=== PATIENT | female | born 1970 | race Caucasian/White ===

== ENCOUNTER 2017-03-13 16:28 | Emergency (ER) | payer OTHER ==
[~2017-03-13] VITALS: Ht 165.1 cm; Wt 104.3 kg
[~2017-03-13 16:28] MED LIST: CLARINEX5 M1 PO; FLEXERIL10 MG PO; GLUCOTROL XL10 MG PO; IBUPROFEN600 M1 PO; JANUVIA100 M1 PO; L-METHYL-B6-B11 EACH PO; LEVEMIR FL100 UNIT/1 SC; LISINOPRIL2.5 M1 PO; LYRICA50 M1 PO; METFORMIN HCL500 M3 PO; NAPROSYN500 M1 PO; NORCO 325 MG-51 TAB PO; PATADAY2.5 ML OP; PERCOCET 325 MG1 TA2 PO; POLYTRIM O200 GTT/BO OPH; PRED FORTE 1 ML1 ML OPH; TRICOR48 M1 PO
--- NOTE | 2017-03-13 17:32 | ED NECK/BACK PAIN COMPLAINT ---
History of Present Illness General Chief Complaint: Low Back Pain/Injury Stated Complaint: CHRONIC LBP,SCIATICA Source: patient Exam Limitations: no limitations Vital Signs & Intake/Output Vital Signs & Intake/Output Vital Signs Date Time Temp Pulse Resp B/P B/P Pulse O2 O2 Flow FiO2 Mean Ox Delivery Rate 03/13 1644 98.0 99 16 146/91 99 Room Air Allergies Coded Allergies: amoxicillin (From AUGMENTIN) (TROUBLE BREATHING 02/06/16) clavulanic acid (From AUGMENTIN) (TROUBLE BREATHING 02/06/16) Reconcile Medications Buspirone HCl 10 MG TABLET 1 TAB PO BID ANXIETY (Reported) Duloxetine HCl 60 MG CAPSULE.DR 1 CAP PO DAILY DEPRESSION (Reported) Exenatide Microspheres (Bydureon Pen) (Unknown Strength) PEN.INJCTR (Unknown Dose) SC QMON DM (Reported) Fenofibrate Nanocrystallized (Fenofibrate) 145 MG TABLET 1 TAB PO DAILY CHOLESTEROL/TRIGLYCERIDES (Reported) Glipizide (Glucotrol XL) 10 MG TAB.ER.24 1 TAB PO DAILY DIABETES (Reported) Ibuprofen 600 MG TABLET 1 TAB PO TID PRN PAIN (Reported) with food Insulin Aspart, Recombinant (Novolog Flexpen) 100 UNIT/ML INSULN.PEN 30 UNITS SC BID DM (Reported) Insulin Detemir (Levemir Flextouch) 100 UNIT/1 ML INSULN.PEN 50 U SC BID DIABETES (Reported) Lidocaine (Unknown Strength) ADH..PATCH (Unknown Dose) UNKNOWN (Reported) Lisinopril 2.5 MG TABLET 1 TAB PO DAILY BP (Reported) Metformin HCl (Metformin HCl ER) 500 MG TAB.ER.24H 1 TAB PO DAILY DM ( Reported) Methylprednisolone. (Medrol) 4 MG TAB.DS.PK 1 DP PO AD back pain 6 on day 1 then reduce by one tablet daily until gone Nabumetone (Unknown Strength) TABLET (Unknown Dose) UNKNOWN (Reported) Naproxen (Naprosyn) 500 MG TABLET 1 TAB PO BID PRN PAIN Pravastatin Sodium 20 MG TABLET 1 TAB PO DAILY CHOLESTEROL (Reported) Tramadol HCl 50 MG TABLET 1 TAB PO BIDP PRN PAIN Triage Note: TRIAGE: C/O TRANSVERSE LOW BACK PAIN, CHRONIC. UNABLE UNABLE TO DO PT EXERCISES TODAY. STATES ANTIINFLAMMATORIES AND TYLENOL HAVE BEEN INEFFECTIVE, LAST DOSES 6 HOURS AGO. PAIN RADIATES DOWN L LEG, SLIGHTLY DOWN RIGHT. UNABLE TO WALK TODAY. MRI SCHEDULED FOR MONDAY. MED WITH LISA IN TRIAGE Triage Nurses Notes Reviewed? yes HPI: This patient is a 47-year-old female with a past medical history including sciatica who presented to the emergency department today for evaluation of worsening chronic pain. She reported that she is scheduled for an MRI of her lower back on . She does see physical therapy, but reported that none of the exercises help except for swimming therapy in the warm water. The patient reported that the actual exercises as out of the water make her pain worse. However, she is currently on her menstrual cycle and was unable to attend for therapy today. They tried putting a heating pad on her back for 10 minutes, but the patient is unable to tolerate this. She takes anti- inflammatories and Tylenol for pain which only mildly helped her symptoms. She tried getting into the shower to take a warm shower, but this was not helping. When she was getting out of the shower her left leg gave out and she started to fall. The patient caught herself on the vanity and did not hit her head or lose consciousness. The patient reported the pain is a 10 out of 10, radiates down both of her legs, left leg greater than the right. The pain is constant. She has numbness and tingling in her extremities, but reported that this is due to her diabetic neuropathy. At this point in time, there is no palliative factors. She denied any bowel or bladder incontinence and subtle paresthesia. The patient denied any abdominal pain, nausea, vomiting, fevers, chills, chest pain, or difficulty breathing. (AFSHAN PAUL PA-C) Past History Travel History Traveled to [place] past 21 day No Medical History Any Pertinent Medical History? see below for history Neurological: NONE EENT: NONE Cardiovascular: NONE Respiratory: NONE Gastrointestinal: NONE Hepatic: NONE Renal: NONE Musculoskeletal: CHRONIC BACK PAIN Psychiatric: NONE Endocrine: IDDM Blood Disorders: NONE Cancer(s): NONE APPLE CHECKER/Reproductive: NONE Surgical History Surgical History: LT 5TH DIGIT SX Psychosocial History What is your primary language Vietnamese Tobacco Use: Quit >30 days ago ETOH Use: denies use Illicit Drug Use: denies illicit drug use Family History Hx Contributory? No (AFSHAN PAUL PA-C) Review of Systems Review of Systems Constitutional: Reports: no symptoms. Eyes: Reports: no symptoms. Ears, Nose, Throat, Mouth: Reports: no symptoms. Respiratory: Reports: no symptoms. Cardiovascular: Reports: no symptoms. Gastrointestinal/Abdominal: Reports: no symptoms. Musculoskeletal: Reports: see HPI. Skin: Reports: no symptoms. Neurological/Psychological: Reports: see HPI. All Other Systems: Reviewed and Negative (AFSHAN PAUL PA-C) Physical Exam Physical Exam Neck: normal inspection, supple, full range of motion, normal alignment, no midline tenderness Comments: Well-developed well-nourished person in no acute distress HEENT: Normal EENT exam, head normocephalic, moist mucous membranes Pupils equally round and reactive to light. Back: Antalgic gait. No midline tenderness. Tenderness to palpation over the lumbar paraspinal musculature bilaterally. Positive straight leg raise on the left Respiratory: No respiratory distress. Speaking in full sentences Extremity: Normal equal pulses Neuro: Alert oriented x3, cranial nerves II through XII grossly intact. Skin: No appreciable rash on exposed skin, skin is warm and dry. Psych: Mood and affect is normal (AFSHAN PAUL PA-C) Progress Differential Diagnosis: cauda equina syn, herniated disc, myofascial strain, pyelo/UTI, sciatica, spinal cord inj, T/L spine injury, ureterolithiasis Plan of Care: Current Medications Sig/Indira Start time Last Medication Dose Stop Time Status Admin Methylprednisolone 125 MG ONCE ONE 03/13 1730 AC (Solu Medrol) 03/13 1731 Tramadol HCl 50 MG ONCE ONE 03/13 1730 AC (Ultram) 03/13 1731 Comments: 03/13/2017 6:48:43 PM: I was at the patient's bedside for reevaluation. She reported relief of her symptoms after 125 mg IM Solu-Medrol and 50 mg of by mouth tramadol. This patient is stable for discharge home. Encouraged to attend her previously scheduled MRI appointment on . (AFSHAN PAUL PA-C) Departure Departure Disposition: HOME OR SELF CARE Condition: Stable Clinical Impression Primary Impression: Sciatica Qualifiers: Laterality: bilateral Qualified Codes: M54.31 - Sciatica, right side; M54.32 - Sciatica, left side Referrals: ASHLEY WHITE (PCP/Family) Additional Instructions: Please attend your previously scheduled appointment for MRI on as discussed. Take Medrol Dosepak as prescribed. Take medication for pain as prescribed. Follow-up with your primary care physician. Return for any worsening symptoms or concerns. Departure Forms: Customer Survey General Discharge Information Prescriptions: Current Visit Scripts Methylprednisolone. (Medrol) 1 DP PO AD #1 DP 6 on day 1 then reduce by one tablet daily until gone Tramadol HCl 1 TAB PO BIDP PRN PAIN #8 TAB (BEVERLY JOHNSON,AFSHAN) PA/CERTIFIED CAREGIVER Co-Sign Statement Statement: ED Attending supervision documentation- [] I saw and evaluated the patient. I have also reviewed all the pertinent lab results and diagnostic results. I agree with the findings and the plan of care as documented in the PA's/CERTIFIED CAREGIVER's documentation. [X] I have reviewed the ED Record and agree with the PA's/CERTIFIED CAREGIVER's documentation. [] Additions or exceptions (if any) to the PAs/CERTIFIED CAREGIVER's note and plan are summarized below: [] (YUN ALVAREZ,MAXIMILIANO)
[2017-03-13] MEDS ORDERED: NOVOLOG FL100 UNIT/1 SC (17:35)
[2017-03-13] MEDS ORDERED: BYDUREON P2 MG/0.65 SC (17:35)
[2017-03-13] MEDS ORDERED: PRAVASTATIN SOD20 M2 PO (17:35)
[2017-03-13] MEDS ORDERED: FENOFIBRATE145 M1 PO (17:36)
[2017-03-13] MEDS ORDERED: LIDOCAINE1 EACH (17:36)
[2017-03-13] MEDS ORDERED: BUSPIRONE HCL10 M1 PO (17:36)
[2017-03-13] MEDS ORDERED: DULOXETINE HCL60 MG PO (17:37)
[2017-03-13] MEDS ORDERED: NABUMETONE500 M1 (17:37)
[2017-03-13] MEDS ORDERED: METFORMIN HCL500 M4 PO (17:37)
[2017-03-13] MEDS ORDERED: MEDROL4 M2 PO (18:24)
[2017-03-13] MEDS ORDERED: TRAMADOL HCL50 M1 PO (18:50)
[2017-03-13 19:27] VITALS: BP 134/88
== END 2017-03-13 19:28 ==
LOC: ERH 16:28
DX: M54.42 Lumbago with sciatica, left side (principal)
CPT/HCPCS: 96372; J2930